=== PATIENT | female | born 1950 | race Hispanic/Latino ===

== ENCOUNTER 2018-02-02 11:20 | Emergency (ER) | payer SELFPAY ==
[~2018-02-02] VITALS: Ht 162.6 cm; Wt 59.9 kg
--- NOTE | 2018-02-02 12:46 | Diagnostic Imaging Report ---
History:istory: Fall, now current pain Comparison studies:None Technique: Axial images were obtained from the brain and cervical spine. Coronal and sagittal images reconstructed from the axial data. Intravenous contrast: None Dose modulation, iterative reconstruction, and/or weight based adjustment of the mA/kV was utilized to reduce the radiation dose to as low as reasonably achievable. Findings: Head CT: Scalp/skull: Right parietal scalp hematoma without underlying fracture. No fractures, blastic or lytic lesions. Brain sulci: Appropriate for age. Ventricles: Normal in size and configuration. No hydrocephalus. Extra-axial spaces: No masses. No fluid collections. Parenchyma: Dystrophic calcification at the left parieto-occipital sulcus. No other abnormal densities. No masses, hemorrhage, acute or chronic cortical vascular insults. . Sellar/suprasellar region: No abnormalities. Craniocervical junction: Patent foramen magnum. No Chiari one malformation. Cervical spine CT: Fractures: None. Soft tissues: No gross abnormalities. Atlantoaxial articulation: No acute abnormality. Mild degenerative changes. Alignment: Reversal of the cervical spine lordosis centered at C5. . No scoliosis. Cervicomedullary junction: No abnormalities. Patent foramen magnum. Vertebrae: No infection or neoplasm. Degenerative changes: Disc degeneration and sclerotic changes at C6-7. Uncinate process hypertrophy and facet hypertrophy results in multilevel foraminal narrowing, severe right at C2-3; moderate right and severe left at C3-4; severe bilateral at C5-6 and C6-7. Incidental findings: Atherosclerotic calcifications of the carotid bulbs.. Impression: Head CT: 1. No acute intracranial abnormality. 2. Right parietal scalp hematoma. Cervical spine CT: 1. No acute abnormalities. 2. Cannot exclude ligament, spinal cord and or vascular abnormalities on the basis of this examination. Signed by: DR Betito Diaz M.D. on 02/02/2018 12:43 PM
[2018-02-02] MEDS ORDERED: ULTRAM50 MG PO (13:02)
== END 2018-02-02 13:37 | disposition home or self-care (01) ==
LOC: ER 11:23
DX: S06.0X0A Concussion without loss of consciousness, initial encounter (principal); S00.83XA Contusion of other part of head, initial encounter; W18.39XA Other fall on same level, initial encounter; Y92.008 Other place in unspecified non-institutional (private) residence as the place of occurrence of the external cause
CPT/HCPCS: 70450; 72125; 94760; 99283; 99284